=== PATIENT | female | born 1945 | race American Indian/Alaskan Native ===

== ENCOUNTER 2017-11-08 23:10 | Emergency (ER) | payer OTHER ==
[2017-11-08 23:20] VITALS: BP 153/82; PULSE 93; RESP 16; TEMP 97.8; O2SAT 96
[2017-11-09 00:03] LABS: BASO % 0.4 % (0.0-2.0); EOS # 0.1 K/uL (0.0-0.7); EOS % 0.9 % (0.0-4.0); HEMOGLOBIN 12.4 g/dL (12.0-16.0); LYMPH # 2.4 K/uL (1.0-4.3); LYMPH % 31.8 % (20.0-40.0); MEAN CELL VOLUME 93.6 fl (81.0-99.0); MEAN CORPUSCULAR HEMOGLOBIN 30.9 pg (27.0-31.0); MONO # 0.7 K/uL (0.0-0.8); MONO % 8.8 % (0.0-10.0); NEUT # 4.4 K/uL (1.8-7.0); NEUT % 58.1 % (50.0-75.0); RBC 4.02 Mil/uL (3.80-5.20); RED CELL DISTRIBUTION WIDTH 13.5 % (11.5-14.5); WHITE BLOOD COUNT 7.5 K/uL (4.8-10.8)
[2017-11-09 00:13] LABS: ALB/GLOB RATIO 1.1 (1.0-2.1); ALBUMIN 3.9 g/dL (3.5-5.0); ALT/SGPT 45 U/L (9-52); AST/SGOT 45 U/L (14-36); BLOOD UREA NITROGEN 27 mg/dl (7-17); CALCIUM 9.6 mg/dL (8.4-10.2); GFR AFRICAN-AMERICAN 29; GFR NON-AFRICAN AMERICAN 24
--- NOTE | 2017-11-09 00:43 | ED PDOC ---
HPI: Psych/Substance Abuse Time Seen by Provider: 11/08/17 23:19 Chief Complaint (Nursing): Substance Abuse Chief Complaint (Provider): Substance Abuse History Per: Patient, EMS History/Exam Limitations: no limitations Onset/Duration Of Symptoms: Mins (CREDIT ADMINISTRATOR) Current Symptoms Are (Timing): Still Present Additional Complaint(s): 72 year old female with a history of opiate abuse brought in by EMS for possible substance, prior to arrival. Homeless prison sspected she may have used drugs. PMD: non provided Past Medical History Reviewed: Historical Data, Nursing Documentation, Vital Signs Vital Signs: Last Vital Signs Temp 97.8 F 11/08/17 23:16 Pulse 93 H 11/08/17 23:16 Resp 16 11/08/17 23:16 BP 153/82 H 11/08/17 23:16 Pulse Ox 96 11/08/17 23:16 - Medical History PMH: HTN - Surgical History Surgical History: No Surg Hx - Family History Family History: States: Unknown Family Hx - Immunization History Hx Tetanus Toxoid Vaccination: No Hx Influenza Vaccination: No Hx Pneumococcal Vaccination: No - Home Medications Home Medications: Ambulatory Orders Medication Instructions Recorded Ibuprofen [Motrin] 400 mg PO Q6 PRN #20 tab 09/24/17 Mv,Min10/Folic Acid/D3/Ala/Lut 1 tab PO DAILY 09/24/17 [Strovite One Caplet] Promethazine DM [Phenergan DM 1 tsp PO QID 09/24/17 Syrup] - Allergies Allergies/Adverse Reactions: Allergies Allergy/AdvReac Type Severity Reaction Status Date / Time No Known Allergies Allergy Unverified 10/04/17 12:47 Review of Systems ROS Statement: Except As Marked, All Systems Reviewed And Found Negative Neurological: Positive for: Change in Speech (slurrd) Physical Exam - Reviewed Nursing Documentation Reviewed: Yes Vital Signs Reviewed: Yes - Physical Exam Appears: Positive for: Non-toxic, No Acute Distress Head Exam: Positive for: ATRAUMATIC, NORMAL INSPECTION, NORMOCEPHALIC Skin: Positive for: Normal Color, Warm, Dry Eye Exam: Positive for: EOMI, Normal appearance, PERRL Neck: Positive for: Normal, Painless ROM, Supple - Laboratory Results Result Diagrams: 11/08/17 23:56 11/08/17 23:56 - ECG O2 Sat by Pulse Oximetry: 96 (RA) Pulse Ox Interpretation: Normal Medical Decision Making Medical Decision Makin:23 Impression: 72 year old female with possible substance abuse Initial Plan: --Urine drug --Alcohol serum --CMP --CBC with differentials Patient is now awake, alert, oriented x3 an has steady gait. She is medically stable for discharge and will be discharged home. Return if symptoms persist or worsen. Scribe Attestation: Documented by Carley Osullivan, acting as a scribe for Simone Velez MD. Provider Scribe Attestation: All medical record entries made by the Scribe were at my direction and personally dictated by me. I have reviewed the chart and agree that the record accurately reflects my personal performance of the history, physical exam, medical decision making, and the department course for this patient. I have also personally directed, reviewed, and agree with the discharge instructions and disposition. Disposition - Clinical Impression Clinical Impression: Opioid dependence - Patient ED Disposition Is Patient to be Admitted: No - Disposition Referrals: Genet Choi MD [Primary Care Provider] - Disposition: Routine/Home Disposition Time: 05:25 Condition: STABLE Instructions: Narcotic Abuse (ED) Forms: [employer] (Samoan)
== END 2017-11-09 05:46 | disposition home or self-care (01) ==
LOC: H.ER 23:10
DX: F11.20 Opioid dependence, uncomplicated (principal); I10 Essential (primary) hypertension
CPT/HCPCS: 80053; 82948; 85025; 99282; G0480